=== PATIENT | male | born 1985 | race Caucasian/White ===

== ENCOUNTER 2021-01-18 04:20 | Inpatient (IN) ==
[2021-01-18] MEDS: Propofol 10 mg/ml 100 ML BTL 100 ML IV SCH ×3 (04:30→20:59)
[2021-01-18] MEDS ORDERED: Propofol 10 mg/ml 100 ML BTL 100 ML ONE (04:32)
[2021-01-18] MEDS ORDERED: Norepinephrine IV 1 MG/ML 4 ML VIAL ONE (04:32)
[2021-01-18] MEDS ORDERED: Norepinephrine 16MCG/ML IVPRE 4,000 MCG/250 ML BAG IV SCH (05:00)
[2021-01-18] MEDS ORDERED: Lactated Ringers 1000 ml BAG 1,000 ML IV SCH (05:00)
[2021-01-18 05:13] LABS: ABS Eosinophils 0.1 10^3/ul (0-0.6); ABS Lymphocytes 1.4 10^3/ul (1.0-4.8); ABS Monocytes 0.3 10^3/ul (0-0.8); ABS Neutrophils 1.8 10^3/ul (1.5-7.7); Eosinophil % 2.8 %; Hematocrit 38 % (42-52); Hemoglobin 13.1 g/dL (14.0-18.0); Lymphocyte % 38.4 %; Mean Corpuscular HGB Conc 35 g/dL (31-36); Mean Corpuscular Hemoglobin 30 pg (27-31); Mean Corpuscular Volume 88 fL (80-94); Mean Platelet Volume 8.1 fL (7.4-10.4); Nucleated Red Blood Cells % 0.2; Platelet Count 197 10^3/uL (150-450); Red Blood Count 4.33 10^6 /uL (4.18-5.48); Red Cell Distribution Width 13 % (10-15); White Blood Count 3.6 10^3/uL (3.5-10.8)
[2021-01-18] MEDS: KCL 20 MEQ/100 ML IVPREMIX 20 MEQ/100 ML BAG IV SCH ×2 (05:18→07:54)
[2021-01-18] MEDS: Chlorhexidine MOUTHWASH 0.12% 15 ML UDC TOPICAL SCH ×5 (05:18→21:03)
[2021-01-18] MEDS: Heparin 5000 UNITS/ML 1 mL VIAL SUBCUT SCH ×3 (05:18→21:03)
[2021-01-18 05:29] LABS: Calcium 8.9 mg/dL (8.6-10.3); Potassium 3.7 mmol/L (3.5-5.0); eGFR CKD-EPI 117.5 (>60)
[2021-01-18 06:35] LABS: Urine Appearance Cloudy; Urine Bilirubin Negative (Negative); Urine Blood 1+ (Negative); Urine Color Yellow; Urine Glucose Negative (Negative); Urine Ketones Negative (Negative); Urine Nitrite Negative (Negative); Urine Protein Negative (Negative); Urine Specific Gravity 1.017 (1.002-1.030); Urine Urobilinogen Negative (Negative)
[2021-01-18 06:41] LABS: Rapid COVID-19 Molecular Undetected (Undetected)
[2021-01-18 06:54] LABS: Urine Bacteria Absent (Absent); Urine Red Blood Cell 2+(6-10/hpf) (Absent); Urine White Blood Cell Trace(0-5/hpf) (Absent)
[2021-01-18] MEDS: Pantoprazole VIAL 40 MG VIAL IV SCH (07:54)
[2021-01-18 09:00] LABS: PCO2 Arterial 42 mmHg (35-45); PO2 Arterial 91 mmHg (80-100)
[2021-01-18 09:31] LABS: Globulin 2.6 g/dL (2-4); Total Protein 6.6 g/dL (6.4-8.9)
[2021-01-18 09:32] LABS: Albumin/Globulin Ratio 1.5 (1-3); Total Bilirubin 0.3 mg/dL (0.2-1.0)
[2021-01-18] MEDS ORDERED: Piperacillin/Tazobac ADVAN 3.375 GM in NS 0.9% 100 ml BAG 100 ML IV ONE (09:32)
[2021-01-18] MEDS ORDERED: KCL 20 MEQ/100 ML IVPREMIX 20 MEQ/100 ML BAG IV ONE (09:45)
[2021-01-18] MEDS ORDERED: Zosyn per Pharmacy NOTE FOLLOW UP SCH (10:00)
[2021-01-18] MEDS ORDERED: Vancomycin 1,500 MG in NS 0.9% 250 ml 250 ML IVPB ONE (10:00)
[2021-01-18] MEDS ORDERED: Vancomycin per Pharmacy 1 EA NOTE FOLLOW UP SCH (10:00)
[2021-01-18 10:42] LABS: Phosphorus 3.8 mg/dL (2.5-5.0)
[2021-01-18] MEDS: ZOSYN 3.375 GM Q8H per EXTENDED INFUSION IV SCH ×2 (14:40→22:27)
[2021-01-18] MEDS: Vancomycin 1,250 MG in NS 0.9% 250 ml 250 ML IVPB SCH (19:37)
[2021-01-19] MEDS: Propofol 10 mg/ml 100 ML BTL 100 ML IV SCH ×3 (00:56→12:07)
[2021-01-19] MEDS: Chlorhexidine MOUTHWASH 0.12% 15 ML UDC TOPICAL SCH ×4 (00:56→13:11)
[2021-01-19] MEDS: Vancomycin 1,250 MG in NS 0.9% 250 ml 250 ML IVPB SCH ×3 (04:00→19:44)
[2021-01-19 04:38] LABS: ABS Eosinophils 0.2 10^3/ul (0-0.6); ABS Lymphocytes 1.3 10^3/ul (1.0-4.8); ABS Monocytes 0.7 10^3/ul (0-0.8); Eosinophil % 2.3 %; Hematocrit 38 % (42-52); Lymphocyte % 15.7 %; Mean Corpuscular HGB Conc 34 g/dL (31-36); Mean Corpuscular Hemoglobin 30 pg (27-31); Mean Corpuscular Volume 87 fL (80-94); Mean Platelet Volume 7.8 fL (7.4-10.4); Platelet Count 191 10^3/uL (150-450); Red Blood Count 4.33 10^6 /uL (4.18-5.48); Red Cell Distribution Width 13 % (10-15); White Blood Count 8.2 10^3/uL (3.5-10.8)
[2021-01-19 04:55] LABS: Calcium 8.7 mg/dL (8.6-10.3); Potassium 3.8 mmol/L (3.5-5.0); eGFR CKD-EPI 91.8 (>60)
[2021-01-19] MEDS: ZOSYN 3.375 GM Q8H per EXTENDED INFUSION IV SCH ×3 (05:44→23:16)
[2021-01-19] MEDS: Heparin 5000 UNITS/ML 1 mL VIAL SUBCUT SCH ×2 (05:46→14:53)
[2021-01-19] MEDS: Pantoprazole VIAL 40 MG VIAL IV SCH (08:01)
[2021-01-19] MEDS ORDERED: Vancomycin Trough Check NOTE FOLLOW UP ONE (11:30)
[2021-01-19 12:29] LABS: Urine Benzodiazepine Screen None Detected (None Detect); Urine Cannabinoids Screen None Detected (None Detect); Urine Opiates Screen None Detected (None Detect)
[2021-01-19] MEDS: Nicotine GUM 4MG FRUIT FLAVOR PO PRN ×2 (14:27→19:44)
[2021-01-19] MEDS ORDERED: Buprenorp/Nalox 8-2 MG SL TAB PO SCH (15:00)
[2021-01-19] MEDS: Nicotine PATCH 21 MG/24 HR PATCH TRANSDERM SCH (15:07)
[2021-01-19] MEDS: Buprenorp/Nalox 8-2 MG SL TAB PO SCH (23:12)
[2021-01-20] MEDS: Vancomycin 1,250 MG in NS 0.9% 250 ml 250 ML IVPB SCH (04:27)
[2021-01-20] MEDS: Buprenorp/Nalox 8-2 MG SL TAB PO SCH (05:22)
[2021-01-20] MEDS: ZOSYN 3.375 GM Q8H per EXTENDED INFUSION IV SCH (06:38)
[2021-01-20 06:56] LABS: Magnesium 2.1 mg/dL (1.9-2.7)
[2021-01-20 07:01] LABS: Phosphorus 3.7 mg/dL (2.5-5.0); eGFR CKD-EPI 101.9 (>60)
[2021-01-20 10:28] VITALS: BP 161/94
[2021-01-20] MEDS ORDERED: Vancomycin Trough Check NOTE FOLLOW UP ONE (11:30)
[2021-01-20] MEDS: Nicotine PATCH 21 MG/24 HR PATCH TRANSDERM SCH (14:36)
[2021-01-20 14:44] LABS: Hematocrit 37 % (42-52); Hemoglobin 12.7 g/dL (14.0-18.0); Mean Corpuscular HGB Conc 35 g/dL (31-36); Mean Corpuscular Hemoglobin 31 pg (27-31); Mean Corpuscular Volume 88 fL (80-94); Mean Platelet Volume 9.3 fL (7.4-10.4); Platelet Count 168 10^3/uL (150-450); Red Blood Count 4.17 10^6 /uL (4.18-5.48); Red Cell Distribution Width 13 % (10-15)
== END 2021-01-20 11:01 | disposition home or self-care (01) | DRG 812 ==
LOC: ICU 04:20
PROVIDERS: ADMIT Internal Medicine; ATTEND Internal Medicine